=== PATIENT | female | born 1960 | race Hispanic/Latino ===

== ENCOUNTER 2017-04-27 09:16 | Day surgery (SDC) | payer MEDICARE ==
[~2017-04-27] VITALS: Ht 167.6 cm; Wt 74.1 kg
[~2017-04-27 09:16] MED LIST: SODIUM CHLORIDE 0.9% 1000ML 1,000 ML IV ONE
[2017-04-27 10:53] VITALS: BP 118/69
[2017-04-27] MEDS ORDERED: CARV25TA PO (11:19)
[2017-04-27] MEDS ORDERED: LOSA1TAB42 PO (11:19)
[2017-04-27] MEDS ORDERED: AMLO10TA2 PO (11:19)
[2017-04-27] MEDS ORDERED: ATOR40TA71 PO (11:19)
[2017-04-27] MEDS ORDERED: MEPERIDINE-PF 50 MG/ML SYG ONE (11:39)
[2017-04-27] MEDS ORDERED: MIDAZOLAM HCL 1 MG/ML 2ML VIAL ONE (11:39)
[2017-04-27 11:59] VITALS: BP 90/52
== END 2017-04-27 12:55 | disposition home or self-care (01) ==
LOC: DAH 09:16
PROVIDERS: ATTEND Internal Medicine Gastroenterology
DX: Z12.11 Encounter for screening for malignant neoplasm of colon (principal)
CPT/HCPCS: A4606; G0121; J2175; J2250; J7030

== ENCOUNTER 2019-02-03 08:01 | Emergency (ER) | payer MEDICARE ==
[2019-02-03] MEDS ORDERED: IBUPROFEN 400 MG TABLET ONE (08:23)
[2019-02-03] MEDS ORDERED: CYCLOBENZAPRINE HCL 10 MG TABLET ONE (08:23)
== END 2019-02-03 09:40 | disposition home or self-care (01) ==
LOC: EDH 08:01
DX: S33.5XXA Sprain of ligaments of lumbar spine, initial encounter (principal); X58.XXXA Exposure to other specified factors, initial encounter; Y93.89 Activity, other specified; Y92.89 Other specified places as the place of occurrence of the external cause; Y99.8 Other external cause status
CPT/HCPCS: 72100